=== PATIENT | female | born 1955 | race African-American/Black ===

== ENCOUNTER 2016-06-05 20:25 | Emergency (ER) | payer BC ==
[2016-06-05 20:32] VITALS: TEMP 98.3; BMI 37.1
--- NOTE | 2016-06-05 20:55 | PDOC ---
History of Present Illness - General History Source: Patient Exam Limitations: No Limitations - History of Present Illness Initial Comments: 06/05/16 21:12 The patient is a 60 year old female with past significant medical history of HTN , hypothyroidism, umbilical hernia, CAD, Gerd, cholelithiasis, s/p cholecystectomy (4 years ago) and choledocholithiasis who presents to the ED with headache, vomiting and diarrhea. Patient notes that she is experiencing abdominal discomfort that is worse when she eats. She reports increased PO. She notes that she received her flu shot few weeks ago. She denies dysuria, hesitancy, urgency or hematuria. PCP - Dr. Chandu Quiñones <Brynn Pierson - Last Filed: 06/05/16 21:12> <Hannah Matute - Last Filed: 06/06/16 04:06> - General Chief Complaint: Vomiting/Diarrhea Stated Complaint: VOMITING/DIARRHEA/ABD PAIN Time Seen by Provider: 06/05/16 20:54 Past History <Brynn Pierson - Last Filed: 06/05/16 21:12> - Past Medical History Anemia: No Asthma: No Cancer: No Cardiac Disorders: Yes (NOT SURE WHAT KIND) COPD: No CHF: No GI Disorders: Yes (GERD) HTN: Yes Hypercholesterolemia: Yes Thyroid Disease: Yes - Surgical History Abdominal Surgery: Yes Cardiac Surgery: No Cholecystectomy: Yes Lung Surgery: No Neurologic Surgery: No Orthopedic Surgery: No - Psycho/Social/Smoking Cessation Hx Suicidal Ideation: No Smoking History: Current some day smoker Have you smoked in the past 12 months: Yes Number of Cigarettes Smoked Daily: 2 Information on smoking cessation initiated: No 'Breaking Loose' booklet given: 07/28/15 Hx Alcohol Use: No Drug/Substance Use Hx: No Substance Use Type: None Hx Substance Use Treatment: No <Hannah Matute - Last Filed: 06/06/16 04:06> - Past Medical History Allergies/Adverse Reactions: Allergies Allergy/AdvReac Type Severity Reaction Status Date / Time No Known Allergies Allergy Verified 06/05/16 20:29 Home Medications: Ambulatory Orders Amlodipine Besylate 5 mg PO DAILY 07/22/15 Aspirin [ASA -] 81 mg PO DAILY 07/22/15 Losartan Potassium 25 mg PO DAILY 07/22/15 Levothyroxine [Synthroid -] 25 mcg PO DAILY 07/28/15 Atorvastatin Ca [Lipitor] 10 mg PO HS 09/22/15 Omeprazole [Prilosec] 40 mg PO DAILY 09/22/15 Ursodiol [Actigall] 300 mg PO TID 09/22/15 Review of Systems - Review of Systems Able to Perform ROS?: Yes Comments:: 06/05/16 21:13 GENERAL/CONSTITUTIONAL: No fever or chills. No weakness. HEAD, EYES, EARS, NOSE AND THROAT: No change in vision. No ear pain or discharge. No sore throat. CARDIOVASCULAR: No chest pain or shortness of breath. RESPIRATORY: No cough, wheezing, or hemoptysis. GASTROINTESTINAL: + nausea, +vomiting, +diarrhea, +abdominal pain. No constipation. GENITOURINARY: No dysuria, frequency, or change in urination. MUSCULOSKELETAL: No joint or muscle swelling or pain. No neck or back pain. SKIN: No rash NEUROLOGIC: No headache, vertigo, loss of consciousness, or change in strength/ sensation. ENDOCRINE: No increased thirst. No abnormal weight change. HEMATOLOGIC/LYMPHATIC: No anemia, easy bleeding, or history of blood clots. ALLERGIC/IMMUNOLOGIC: No hives or skin allergy. <Brynn Pierson - Last Filed: 06/05/16 21:12> *Physical Exam - Vital Signs Last Vital Signs Temp Pulse Resp BP Pulse Ox 98.3 F 130 H 14 128/47 93 L 06/05/16 20:30 06/05/16 20:30 06/05/16 20:30 06/05/16 20:30 06/05/16 20:30 - Physical Exam Comments: 06/05/16 21:13 GENERAL: Awake, alert, and fully oriented, in no acute distress HEAD: No signs of trauma EYES: PERRLA, EOMI, sclera anicteric, conjunctiva clear ENT: Auricles normal inspection, hearing grossly normal, nares patent, oropharynx clear without exudates. Moist mucosa NECK: Normal ROM, supple, no lymphadenopathy, JVD, or masses LUNGS: Breath sounds equal, clear to auscultation bilaterally. No wheezes, and no crackles HEART: Regular rate and rhythm, normal S1 and S2, no murmurs, rubs or gallops ABDOMEN: Soft, nontender, normoactive bowel sounds. No guarding, no rebound. No masses EXTREMITIES: Normal range of motion, no edema. No clubbing or cyanosis. No cords, erythema, or tenderness NEUROLOGICAL: Cranial nerves II through XII grossly intact. Normal speech, normal gait SKIN: Warm, Dry, normal turgor, no rashes or lesions noted. <Brynn Pierson - Last Filed: 06/05/16 21:12> - Vital Signs Last Vital Signs Temp Pulse Resp BP Pulse Ox 98.3 F 130 H 14 128/47 93 L 06/05/16 20:30 06/05/16 20:30 06/05/16 20:30 06/05/16 20:30 06/05/16 20:30 <Hannah Matute - Last Filed: 06/06/16 04:06> ED Treatment Course - LABORATORY CBC & Chemistry Diagram: 06/05/16 21:19 06/05/16 21:19 <Hannah Matute - Last Filed: 06/06/16 04:06> Medical Decision Making - Medical Decision Making 06/06/16 04:03 Pt comes with 2 days of dehydration/ intractable vomiting; she appears unwell, and she has heart rate of 130. Pt was hydrated in the ER and her potassium and magnesium were repleted. Pt states that she feels better after hydration and multiple meds. SHe appears well. Labs are normal and CXR is clear and her UA is normal. Pt will be discharged home. <Hannah Matute - Last Filed: 06/06/16 04:06> *DC/Admit/Observation/Transfer - Attestations Scribe Attestion: 06/05/16 21:14 Documentation prepared by MIRIAM Cash, acting as medical liaison for Hannah Matute MD. <Brynn Pierson - Last Filed: 06/05/16 21:12> - Discharge Dispostion Admit: No <Hannah Matute - Last Filed: 06/06/16 04:06> Diagnosis at time of Disposition: Viral gastroenteritis - Discharge Dispostion Disposition: HOME Condition at time of disposition: Improved - Referrals Referrals: Tim Quiñones MD [Primary Care Provider] - - Patient Instructions Printed Discharge Instructions: DI for Viral Gastroenteritis -- Adult - Post Discharge Activity Work/School Note: Back to Work
[2016-06-05] MEDS ORDERED: FAMOTIDINE 20 MG/50 ML IVPB 50 ML IVPB ONE ×2 (21:06→21:11)
[2016-06-05] MEDS ORDERED: SODIUM CHLORIDE 0.9% 500 ML INFUS.BAG IV ONE ×2 (21:06→22:29)
[2016-06-05] MEDS ORDERED: ONDANSETRON 4 MG/2 ML VIAL IVPB ONE (21:06)
[2016-06-05] MEDS ORDERED: ONDANSETRON 4 MG/2 ML VIAL ONE (21:11)
[2016-06-05 21:47] LABS: BASOPHIL 0.3 % (0-2.0); EOSINOPHIL 0.1 % (0-4.5); MCH 25.9 pg (25.7-33.7); MCHC 32.2 g/dl (32.0-36.0); MEAN CELL VOLUME 80.5 fl (80-96); NEUTROPHILS 68.3 % (42.8-82.8); RDW 14.5 % (11.6-15.6)
[2016-06-05 21:49] LABS: MEAN PLT VOLUME 11.4 fl (7.5-11.1)
[2016-06-05 22:07] LABS: PLATELET COMMENT2 NO CLUMPING NOTED; PLATELET COUNT 156 K/MM3 (134-434); PLATELET ESTIMATE DECREASED (NORMAL)
[2016-06-05 22:16] LABS: CALCIUM 9.3 mg/dL (8.5-10.1)
[2016-06-05 22:18] LABS: BILIRUBIN,TOTAL 0.5 mg/dL (0.2-1.0); CREATININE 1.7 mg/dL (0.55-1.02); TOT PROT 7.6 g/dl (6.4-8.2)
[2016-06-05] MEDS ORDERED: MAGNESIUM SULF 50% (8.12 MEQ/2 ML-1 GM VIAL) IVPB ONE (22:29)
[2016-06-05] MEDS ORDERED: POTASSIUM CHLORIDE TABS 20 MEQ TABLET.ER (FP) PO ONE ×2 (22:29→22:34)
[2016-06-05] MEDS ORDERED: MAGNESIUM SULF 50% (8.12 MEQ/2 ML-1 GM VIAL) ONE (22:34)
[2016-06-05] MEDS ORDERED: KCL 10 MEQ IVPB 100 ML IVPB ONE (22:43)
[2016-06-05] MEDS: KCL 10 MEQ IVPB 100 ML IVPB SCH ×2 (22:49→23:41)
[2016-06-05] MEDS ORDERED: KCL 10 MEQ IVPB 200 ML IVPB ONE (23:38)
[2016-06-06 00:32] VITALS: BP 132/75; PULSE 85
[2016-06-06] MEDS: KCL 10 MEQ IVPB 100 ML IVPB SCH (01:04)
[2016-06-06 01:13] LABS: URINE APPEARANCE SLCLOUDY; URINE BILIRUBIN NEGATIVE (NEGATIVE); URINE BLOOD NEGATIVE (NEGATIVE); URINE COLOR LTYELLOW; URINE GLUCOSE (UA) NEGATIVE (NEGATIVE); URINE KETONE TRACE (NEGATIVE); URINE LEUK ESTERASE NEGATIVE (NEGATIVE); URINE NITRITE NEGATIVE (NEGATIVE); URINE PROTEIN NEGATIVE (NEGATIVE); URINE UROBILINOGEN NEGATIVE E.U./dl (0.2-1.0)
== END 2016-06-06 01:54 | disposition home or self-care (01) ==
LOC: JER 20:25
PROC: 3E033GC Introduction of Other Therapeutic Substance into Peripheral Vein, Percutaneous Approach (ICD-10-PCS; principal; 2016-06-05)
PROC: 3E033GC Introduction of Other Therapeutic Substance into Peripheral Vein, Percutaneous Approach (ICD-10-PCS; 2016-06-05)
PROC: 3E033GC Introduction of Other Therapeutic Substance into Peripheral Vein, Percutaneous Approach (ICD-10-PCS; 2016-06-05)
DX: A08.4 Viral intestinal infection, unspecified (principal); B97.89 Other viral agents as the cause of diseases classified elsewhere
CPT/HCPCS: 36415; 71010-TC; 80053; 81003; 82150; 83690; 85025; 87804; 99281-25

== ENCOUNTER 2018-07-23 15:49 | Emergency (ER) | payer BC ==
[2018-07-23 15:59] VITALS: BP 145/97; PULSE 93; TEMP 98; BMI 40.2
--- NOTE | 2018-07-23 16:29 | PDOC ---
History of Present Illness - General Chief Complaint: Rectal Bleed Stated Complaint: BLOOD IN STOOL Time Seen by Provider: 07/23/18 16:27 Past History - Past Medical History Allergies/Adverse Reactions: Allergies Allergy/AdvReac Type Severity Reaction Status Date / Time No Known Allergies Allergy Verified 07/23/18 15:55 Home Medications: Ambulatory Orders Amlodipine Besylate 5 mg PO DAILY 07/22/15 Aspirin [ASA -] 81 mg PO DAILY 07/22/15 Losartan Potassium 25 mg PO DAILY 07/22/15 Levothyroxine [Synthroid -] 25 mcg PO PRN PRN 07/28/15 Atorvastatin Ca [Lipitor] 10 mg PO DAILY 09/22/15 Cyclobenzaprine HCl [Flexeril -] 10 mg PO TID 07/23/18 Anemia: No Asthma: No Cancer: No Cardiac Disorders: Yes (NOT SURE WHAT KIND) COPD: No CHF: No GI Disorders: Yes (GERD) HTN: Yes Hypercholesterolemia: Yes Thyroid Disease: Yes - Surgical History Abdominal Surgery: Yes Cardiac Surgery: No Cholecystectomy: Yes Lung Surgery: No Neurologic Surgery: No Orthopedic Surgery: No - Suicide/Smoking/Psychosocial Hx Smoking History: Current every day smoker Have you smoked in the past 12 months: Yes Number of Cigarettes Smoked Daily: 10 Information on smoking cessation initiated: No 'Breaking Loose' booklet given: 07/28/15 Hx Alcohol Use: No Drug/Substance Use Hx: No Substance Use Type: None Hx Substance Use Treatment: No *Physical Exam - Vital Signs Last Vital Signs Temp Pulse Resp BP Pulse Ox 98.0 F 93 H 18 145/97 100 07/23/18 15:56 07/23/18 15:56 07/23/18 15:56 07/23/18 15:56 07/23/18 15:56 Moderate Sedation - Procedure Monitoring Vital Signs: Procedure Monitoring Vital Signs Temperature 98.0 F 07/23/18 15:56 Pulse Rate 93 H 07/23/18 15:56 Respiratory Rate 18 07/23/18 15:56 Blood Pressure 145/97 07/23/18 15:56 O2 Sat by Pulse Oximetry (%) 100 07/23/18 15:56 ED Treatment Course - LABORATORY CBC & Chemistry Diagram: 07/23/18 17:20 07/23/18 17:20 Medical Decision Making - Medical Decision Making *Reviewed vital signs, nursing notes, and prior visit documentation (if available). Suspect likely mild diverticular bleed versus internal hemorrhoid (less likely) . Stable h/h. Vitals unremarkable for hypotension or tachycardia. 19:00 Pt signed out to resident Dr. Edwards after she was verbally appraised of the pts HPI, current ED course, and plan of management. Will reassess pt after potassium replenishment is complete. Anticipate discharge home with outpatient GI follow up. Pt requests new GI referral as she is dissatisfied with Dr. Hall. Referral placed for Dr. Guerra. *DC/Admit/Observation/Transfer - Referrals Referrals: Tim Quiñones MD [Primary Care Provider] - Abi Guerra MD [Staff Physician] - - Patient Instructions - Post Discharge Activity
--- NOTE | 2018-07-23 17:31 | PDOC ---
Attending Attestation - HPI HPI: 07/23/18 20:51 The patient is a 63 year old female, with a significant past medical history of HTN, hypothyroidism, umbilical hernia, CAD, GERD, cholelithiasis (s/p cholecystectomy), and diverticulosis who presents to the emergency department with bright red blood in her stool since earlier today. The patient notes that when she last saw her loading inspector, Dr. Giron, she had gallstones. The patient denies left lower quadrant pain. The patient denies chest pain, shortness of breath, headache or dizziness. The patient denies fever, chills, nausea, vomit, diarrhea or constipation. Allergies: NKA Past surgical history: cholecystectomy Social history: Current everyday smoker PCP: Tim Amin - Physicial Exam PE: 07/23/18 20:52 GENERAL: (+)Morbidly obese. Awake, in no acute distress HEAD: (+) normocephalic/atraumatic .No signs of trauma EYES: PERRLA, EOMI, sclera anicteric, conjunctiva clear ENT: Auricles normal inspection, hearing grossly normal, nares patent, oropharynx clear without exudates. Moist mucosa NECK: Normal ROM, supple, no lymphadenopathy, JVD, or masses LUNGS: Breath sounds equal, clear to auscultation bilaterally. No wheezes, and no crackles HEART: Regular rate and rhythm, normal S1 and S2, no murmurs, rubs or gallops ABDOMEN: (+) protuberant, nontender, normoactive bowel sounds. No guarding, no rebound. No masses RECTAL: normal tone, no melena, skin, external skin tag, but no appreciable internal hemorrhoids. EXTREMITIES: Normal range of motion, no edema. No clubbing or cyanosis. No cords, erythema, or tenderness NEUROLOGICAL: (+) alert and oriented 3. Cranial nerves II through XII grossly intact. Normal speech, normal gait SKIN: Warm, Dry, normal turgor, no rashes or lesions noted. <Azeem Tyson - Last Filed: 07/23/18 20:51> - Resident Resident Name: Raheem Rocha - ED Attending Attestation I have performed the following: I have examined & evaluated the patient, The case was reviewed & discussed with the resident, I agree w/resident's findings & plan, Exceptions are as noted - HPI HPI: 03/18/19 17:30 63-year-old female presents because of bright red blood in her stool. She does have a history of seeing a loading inspector, Dr. Giron and when she had gallstones. She had a cholecystectomy She does not have left lower quadrant pain, no fever, no chills, no nausea, no vomiting - Physicial Exam PE: 07/23/18 17:31 Morbidly obese 63-year-old female presents with complaint of blood in her stool Head normocephalic/atraumatic. Neck is supple Lungs are clear to auscultation. CVS regular rate and rhythm S1, S2 Abdomen is protuberant, no rebound, no guarding. Rectal exam normal tone, no melena, skin, external skin tag, but no appreciable internal hemorrhoids. Extremities no edema. Skin warm and dry. Neuro alert and oriented 3, ambulatory, no gross focal neural deficits Psych appropriate - Medical Decision Making 07/23/18 17:32 Differential diagnosis includes internal hemorrhoids, diverticulitis, anal fissure plan labs,hemoocult 07/23/18 22:53 stool hemoccult was negative no anemia benign abd exam pt does have a loading inspector and she will follow up with them <Kelly Bruner - Last Filed: 07/23/18 22:54> Attestations - Attestations 07/23/18 20:52 Documentation prepared by Azeem Tyson, acting as medical management specialist for Kelly Bruner MD <Azeem Tyson - Last Filed: 07/23/18 20:51>
[2018-07-23 17:33] LABS: BASO % 3.5 % (0-2.0); EOS % 2.8 % (0-4.5); HEMATOCRIT 39.8 % (32.4-45.2); HEMOGLOBIN 13.3 GM/dL (10.7-15.3); LYMPH % 42.3 % (8-40); MCH 28.1 pg (25.7-33.7); MCHC 33.4 g/dl (32.0-36.0); MEAN CELL VOLUME 84.2 fl (80-96); MEAN PLT VOLUME 11.2 fl (7.5-11.1); MONO % 7.5 % (3.8-10.2); NEUT % 43.9 % (42.8-82.8); PLATELET COUNT 113 K/MM3 (134-434); RBC 4.72 M/mm3 (3.60-5.2); RDW 14.3 % (11.6-15.6); WHITE BLOOD COUNT 7.3 K/mm3 (4.0-10.0)
[2018-07-23 17:34] LABS: URINE APPEARANCE CLEAR; URINE BILIRUBIN NEGATIVE (<2.0 mg/dL); URINE COLOR STRAW; URINE GLUCOSE (UA) NEGATIVE (NEGATIVE); URINE KETONE NEGATIVE (NEGATIVE); URINE LEUK ESTERASE NEGATIVE (NEGATIVE); URINE NITRITE NEGATIVE (NEGATIVE); URINE PROTEIN NEGATIVE (NEGATIVE); URINE UROBILINOGEN NEGATIVE mg/dL (0.2-1.0)
[2018-07-23 18:05] LABS: ALBUMIN 3.8 g/dl (3.4-5.0); ALK PHOS 73 U/L (45-117); ANION GAP 9 MMOL/L (8-16); BILIRUBIN,TOTAL 0.3 mg/dL (0.2-1); BLOOD UREA NITROGEN 13 mg/dL (7-18); CALCIUM 8.6 mg/dL (8.5-10.1); CHLORIDE 108 mmol/L (98-107); CO2 26 mmol/L (21-32); CREATININE 0.9 mg/dL (0.55-1.3); GLUCOSE,RANDOM 102 mg/dL (74-106); SGOT/AST 26 U/L (15-37); SGPT/ALT 35 U/L (13-61); SODIUM 142 mmol/L (136-145); TOT PROT 6.6 g/dl (6.4-8.2)
[2018-07-23 18:06] LABS: POTASSIUM 2.9 mmol/L (3.5-5.1)
[2018-07-23] MEDS ORDERED: POTASSIUM CHLORIDE TABS 20 MEQ TABLET.ER (FP) PO ONE ×2 (18:13→18:31)
[2018-07-23] MEDS ORDERED: KCL 10 MEQ IVPB 10 MEQ/100 ML INFUS.BAG IVPB SCH (18:15)
[2018-07-23] MEDS ORDERED: KCL 10 MEQ IVPB 10 MEQ/100 ML INFUS.BAG IVPB ONE (18:31)
--- NOTE | 2018-07-23 19:17 | PDOC ---
*Physical Exam - Vital Signs Last Vital Signs Temp Pulse Resp BP Pulse Ox 98.0 F 93 H 18 145/97 100 07/23/18 15:56 07/23/18 15:56 07/23/18 15:56 07/23/18 15:56 07/23/18 15:56 ED Treatment Course - LABORATORY CBC & Chemistry Diagram: 07/23/18 17:20 07/23/18 17:20 - ADDITIONAL ORDERS Additional order review: Laboratory Results 07/23/18 07/23/18 07/23/18 17:20 17:00 17:00 Sodium 142 Potassium 2.9 L* Chloride 108 H Carbon Dioxide 26 Anion Gap 9 BUN 13 Creatinine 0.9 Creat Clearance w eGFR 63.44 Random Glucose 102 Calcium 8.6 Total Bilirubin 0.3 AST 26 ALT 35 Alkaline Phosphatase 73 Total Protein 6.6 Albumin 3.8 Urine Color Straw Urine Appearance Clear Urine pH 6.0 Ur Specific [place] 1.012 Urine Protein Negative Urine Glucose (UA) Negative Urine Ketones Negative Urine Blood Negative Urine Nitrite Negative Urine Bilirubin Negative Urine Urobilinogen Negative Ur Leukocyte Esterase Negative Stool Occult Blood Negative 07/23/18 17:20 RBC 4.72 MCV 84.2 MCHC 33.4 RDW 14.3 MPV 11.2 H Neutrophils % 43.9 D Lymphocytes % 42.3 H D Monocytes % 7.5 Eosinophils % 2.8 D Basophils % 3.5 H D - Medications Given in the ED: ED Medications Discontinued Medications Generic Name Dose Route Start Last Admin Trade Name Freq PRN Reason Stop Dose Admin Potassium Chloride 10 meq in 100 mls @ 100 mls/hr 07/23/18 18:15 07/23/18 18: 32 Potassium Chloride 10 Meq Premix Ivpb - IVPB 07/23/18 19:14 100 mls/hr Q60M ASHISH Administration Potassium Chloride 40 meq 07/23/18 18:13 07/23/18 18:32 K-Dur - PO 07/23/18 18:14 40 meq ONCE ONE Administration Medical Decision Making - Medical Decision Making 07/23/18 19:16 Sign out received from Dr Rocha. Grace Mcarthur is a 63yo woman with a PMH of HTN, hypothyroidism, umbilical hernia, CAD, GERD, cholelithiasis s/p cholecystectomy, diverticulosis who presented reporting BRBPR. ED workup notable for: - FOBT negative - CBC w/o abnormalities. No anemia - Potassium 2.9. Currently repleting IV and PO - VSS - Plan to discharge with GI and PMD follow up after completing potassium 07/23/18 19:54 - Potassium completed - Feels ready to go home - Discussed home care, follow up, return precautions. Ms Mcarthur states understanding and agreement with this plan. Would like referral to GI and primary care. Will provide info. Discussed with Dr Bruner. Marlen Edwards PGY1 *DC/Admit/Observation/Transfer Diagnosis at time of Disposition: Hypokalemia - Discharge Dispostion Disposition: HOME Condition at time of disposition: Stable Decision to Admit order: No - Referrals Referrals: Abi Guerra MD [Staff Physician] - Tim Quiñones MD [Primary Care Provider] - [facility] [place] [facility] [Provider Group] - Patient Instructions Printed Discharge Instructions: DI for Rectal Bleeding Additional Instructions: Discharge Instructions: You were seen in the ER for rectal bleeding. There was no blood in your stool when you arrived, and the bleeding you saw may have been caused by hemorrhoids or diverticulosis (pouches off the colon) that were irritated. Home Care and Follow Up: - If you have hard stools or need to strain for a bowel movement, consider using an over the counter stool softener (Colace), mild laxative (Miralax) or fiber supplement (Metamucil). You may wish to discuss this with your doctors at follow up - You have been referred to a GI doctor for follow up. Make an appointment within the next 1-2 weeks or earlier if your symptoms recur. - You should follow up with your regular doctor within the next week to recheck your potassium. You have been referred to the [facility] if you want to switch your primary doctor. - Seek immediate medical care if you have any maroon or dark black stool, continued rectal bleeding that does not stop, lightheadedness, chest pain, shortness of breath, or any medical emergency. - Post Discharge Activity
--- NOTE | 2018-07-24 10:42 | EKG ---
Test Reason : Blood Pressure : / mmHG Vent. Rate : 081 BPM Atrial Rate : 081 BPM P-R Int : 142 ms QRS Dur : 070 ms QT Int : 384 ms P-R-T Axes : 018 013 020 degrees QTc Int : 446 ms POOR DATA QUALITY, INTERPRETATION MAY BE ADVERSELY AFFECTED NORMAL SINUS RHYTHM NONSPECIFIC ST AND T WAVE ABNORMALITY ABNORMAL ECG WHEN COMPARED WITH ECG OF 23-OCT-2006 17:55, NONSPECIFIC T WAVE ABNORMALITY, WORSE IN LATERAL LEADS Confirmed by Davey Pickering MD ([id number]) on 07/24/2018 10:42:23 AM Referred By: Confirmed By:Davey Pickering MD
== END 2018-07-23 20:45 | disposition home or self-care (01) ==
LOC: JER 15:49
PROC: 3E0337Z Introduction of Electrolytic and Water Balance Substance into Peripheral Vein, Percutaneous Approach (ICD-10-PCS; principal; 2018-07-23)
DX: E87.6 Hypokalemia (principal); I10 Essential (primary) hypertension; E03.9 Hypothyroidism, unspecified; E78.00 Pure hypercholesterolemia, unspecified; K21.9 Gastro-esophageal reflux disease without esophagitis; E66.01 Morbid (severe) obesity due to excess calories; Z68.41 Body mass index [BMI] 40.0-44.9, adult
CPT/HCPCS: 36415; 80053; 81003; 82272; 85025; 87086; 87186; 93005; 93010; 99285-25

== ENCOUNTER 2022-02-14 13:04 | Inpatient (IN) | payer BC ==
[2022-02-14 13:11] VITALS: BMI 36.6
[2022-02-14 14:52] LABS: INR 0.94 (0.83-1.09); PROTHROMBIN TIME (PATIENT) 10.8 SEC (9.7-13.0)
[2022-02-14 14:55] LABS: ACTIVATED PTT 24.6 SECONDS (25.2-36.5)
[2022-02-14 15:06] LABS: CALCIUM 9.2 mg/dL (8.5-10.1)
[2022-02-14 15:07] LABS: ALBUMIN 3.7 g/dl (3.4-5.0)
[2022-02-14 15:08] LABS: BLOOD UREA NITROGEN 14.1 mg/dL (7-18)
[2022-02-14 15:10] LABS: CREATININE 0.8 mg/dL (0.55-1.3)
[2022-02-14 15:12] LABS: TOT PROT 6.7 g/dl (6.4-8.2)
[2022-02-14 15:13] LABS: BILIRUBIN,TOTAL 0.4 mg/dL (0.2-1)
[2022-02-14 15:29] LABS: BASO % 1.2 % (0-2.0); EOS % 3.8 % (0-4.5); HEMATOCRIT 45.1 % (32.4-45.2); HEMOGLOBIN 13.9 GM/dL (10.7-15.3); MCH 25.7 pg (25.7-33.7); MCHC 30.8 g/dl (32.0-36.0); MEAN CELL VOLUME 83.3 fl (80-96); MONO % 9.1 % (3.8-10.2); NEUT % 38.9 % (42.8-82.8); RBC 5.42 M/mm3 (3.60-5.2); RDW 14.6 % (11.6-15.6); WHITE BLOOD COUNT 6.3 K/mm3 (4.0-10.0)
[2022-02-14 17:00] LABS: URINE APPEARANCE CLEAR; URINE COLOR YELLOW
[2022-02-14 17:01] LABS: URINE BILIRUBIN NEGATIVE (NEGATIVE); URINE GLUCOSE (UA) NEGATIVE (NEGATIVE); URINE KETONE NEGATIVE (NEGATIVE); URINE LEUK ESTERASE NEGATIVE (NEGATIVE); URINE NITRITE NEGATIVE (NEGATIVE); URINE PROTEIN NEGATIVE (NEGATIVE); URINE UROBILINOGEN 0.2 mg/dL (0.2-1.0)
[2022-02-14] MEDS ORDERED: ASPIRIN 81 MG CHEWABLE TABLETS PO ONE (18:16)
[2022-02-14] MEDS ORDERED: ASPIRIN 81 MG CHEWABLE TABLETS ONE (18:29)
[2022-02-14] MEDS ORDERED: ACETAMINOPHEN 1000 MG/100 ML BAG IVPB PRN (18:51)
[2022-02-15 08:40] LABS: BASO % 0.8 % (0-2.0); EOS % 5.3 % (0-4.5); HEMATOCRIT 42.5 % (32.4-45.2); HEMOGLOBIN 13.5 GM/dL (10.7-15.3); LYMPH % 48.7 % (8-40); MCH 26.2 pg (25.7-33.7); MCHC 31.7 g/dl (32.0-36.0); MEAN CELL VOLUME 82.7 fl (80-96); NEUT % 36.2 % (42.8-82.8); RBC 5.14 M/mm3 (3.60-5.2); RDW 14.3 % (11.6-15.6); WHITE BLOOD COUNT 6.6 K/mm3 (4.0-10.0)
[2022-02-15 09:07] LABS: ALBUMIN 3.5 g/dl (3.4-5.0); CALCIUM 9.2 mg/dL (8.5-10.1)
[2022-02-15 09:10] LABS: BILIRUBIN,TOTAL 0.6 mg/dL (0.2-1); CREATININE 0.8 mg/dL (0.55-1.3); TOT PROT 6.4 g/dl (6.4-8.2)
[2022-02-15] MEDS ORDERED: ATORVASTATIN CA 10 MG TABLET (FP) PO SCH (10:00)
[2022-02-15 10:28] LABS: MEAN PLT VOLUME 10.9 fl (7.5-11.1); PLATELET COUNT 98 10^3/uL (134-434)
[2022-02-15] MEDS: ASPIRIN 81 MG CHEWABLE TABLETS PO SCH (11:25)
[2022-02-15] MEDS: ENOXAPARIN NA (PORCINE) 40 MG/0.4 ML DISP.SYRIN SQ SCH (11:25)
[2022-02-15] MEDS: LOSARTAN POTASSIUM 25 MG TABLET PO SCH (11:25)
[2022-02-15] MEDS: amLODIPine BESYLATE 5 MG TABLET (FP) PO SCH (11:25)
[2022-02-15] MEDS: LEVOTHYROXINE NA 25 MCG TABLET (FP) PO SCH (11:57)
[2022-02-15] MEDS ORDERED: POTASSIUM CHLORIDE TABS 20 MEQ TABLET.ER (FP) PO ONE (14:00)
[2022-02-15 14:11] LABS: MAGNESIUM 2.1 mg/dL (1.8-2.4)
[2022-02-15 14:15] LABS: PHOSPHOROUS 4.3 mg/dL (2.5-4.9)
[2022-02-15] MEDS: NICOTINE 7 MG/24 HOURS TOPICAL PATCH TD SCH (14:38)
[2022-02-15] MEDS: ACETAMINOPHEN 1000 MG/100 ML BAG IVPB PRN (23:50)
[2022-02-16] MEDS: LEVOTHYROXINE NA 25 MCG TABLET (FP) PO SCH ×2 (06:38)
[2022-02-16] MEDS: ACETAMINOPHEN 1000 MG/100 ML BAG IVPB PRN ×2 (09:28→23:00)
[2022-02-16] MEDS: ATORVASTATIN CA 20 MG TABLET (FP) PO SCH (09:29)
[2022-02-16] MEDS: LOSARTAN POTASSIUM 25 MG TABLET PO SCH (09:29)
[2022-02-16] MEDS: amLODIPine BESYLATE 5 MG TABLET (FP) PO SCH (09:29)
[2022-02-16] MEDS: ASPIRIN 81 MG CHEWABLE TABLETS PO SCH (09:29)
[2022-02-16] MEDS: ENOXAPARIN NA (PORCINE) 40 MG/0.4 ML DISP.SYRIN SQ SCH (09:30)
[2022-02-16] MEDS: NICOTINE 7 MG/24 HOURS TOPICAL PATCH TD SCH (09:30)
[2022-02-17] MEDS: LEVOTHYROXINE NA 25 MCG TABLET (FP) PO SCH (06:14)
[2022-02-17 07:57] LABS: HEMATOCRIT 41.1 % (32.4-45.2); HEMOGLOBIN 13.2 GM/dL (10.7-15.3); MCH 26.5 pg (25.7-33.7); MCHC 32.1 g/dl (32.0-36.0); MEAN CELL VOLUME 82.7 fl (80-96); MEAN PLT VOLUME 10.9 fl (7.5-11.1); PLATELET COUNT 100 10^3/uL (134-434); RBC 4.97 M/mm3 (3.60-5.2); RDW 14.2 % (11.6-15.6); WHITE BLOOD COUNT 5.8 K/mm3 (4.0-10.0)
[2022-02-17 08:25] LABS: ALBUMIN 3.5 g/dl (3.4-5.0); BLOOD UREA NITROGEN 17.4 mg/dL (7-18); CALCIUM 9.4 mg/dL (8.5-10.1)
[2022-02-17 08:28] LABS: CREATININE 0.8 mg/dL (0.55-1.3)
[2022-02-17 08:29] LABS: BILIRUBIN,TOTAL 0.4 mg/dL (0.2-1); TOT PROT 6.2 g/dl (6.4-8.2)
[2022-02-17 10:07] LABS: ANISOCYTOSIS 0; HELMET CELLS 0; HOWELL-JOLLY BODIES 0; MACROCYTOSIS 0; OVALOCYTE 0; ROULEAU 0; SICKELED CELLS 0; TARGET CELLS 0; TEAR DROP CELLS 0; TOXIC GRANULATION 0
[2022-02-17] MEDS: ENOXAPARIN NA (PORCINE) 40 MG/0.4 ML DISP.SYRIN SQ SCH (10:24)
[2022-02-17] MEDS: ATORVASTATIN CA 20 MG TABLET (FP) PO SCH (10:24)
[2022-02-17] MEDS: NICOTINE 7 MG/24 HOURS TOPICAL PATCH TD SCH (10:24)
[2022-02-17] MEDS: LOSARTAN POTASSIUM 25 MG TABLET PO SCH (10:24)
[2022-02-17] MEDS: ASPIRIN 81 MG CHEWABLE TABLETS PO SCH (10:24)
[2022-02-17] MEDS: amLODIPine BESYLATE 5 MG TABLET (FP) PO SCH (10:24)
[2022-02-17 10:58] VITALS: RESP 16
[2022-02-17 15:24] VITALS: BP 141/76; PULSE 90; TEMP 97.8
== END 2022-02-17 18:51 | disposition home or self-care (01) | DRG 65 ==
LOC: JER 13:04 → JERBED 16:37 → UNDOADMOB 16:37 → INTOOBSV 16:37 → UNDOADMOB 16:38 → JERBED 16:38 → J4W 20:51 → OBSVTOIN 22:14 → INTOOBSV 22:14 → J4W 02-15 10:47 → JERBED 02-15 10:47 → OBSVTOIN 02-16 10:14 → J4W 02-16 21:21
PROVIDERS: ADMIT Internal Medicine; ATTEND Internal Medicine
DX: I63.9 Cerebral infarction, unspecified (principal); G81.94 Hemiplegia, unspecified affecting left nondominant side; E78.5 Hyperlipidemia, unspecified; I10 Essential (primary) hypertension; E03.9 Hypothyroidism, unspecified; K21.9 Gastro-esophageal reflux disease without esophagitis; E66.9 Obesity, unspecified; I25.10 Atherosclerotic heart disease of native coronary artery without angina pectoris; Z68.34 Body mass index [BMI] 34.0-34.9, adult; E87.6 Hypokalemia; F17.210 Nicotine dependence, cigarettes, uncomplicated
CPT/HCPCS: 36415; 70450-TC; 70496-TC; 70498-TC; 70551-TC; 80053; 80061; 81003; 82550; 83036; 83735; 84100; 84443; 84484; 85025; 85610; 85730; 86850; 86900; 86901; 93005; 93010; 93306-TC; 93880-TC; 97116-GP; 97162-GP; 99285-25; C9803-CS; G0378; U0003; U0005

== ENCOUNTER 2023-05-26 14:17 | Emergency (ER) | payer OTHER, BC ==
[2023-05-26 14:32] VITALS: BP 138/81; PULSE 99; RESP 18; TEMP 98; BMI 36.6
[2023-05-26] MEDS ORDERED: FAMOTIDINE 20 MG/50 ML IVPB 20 MG/50 ML MG IVPB ONE ×2 (15:26→15:36)
[2023-05-26] MEDS ORDERED: ACETAMINOPHEN 1000 MG/100 ML BAG IVPB ONE (15:26)
[2023-05-26] MEDS ORDERED: MAG HYDROX/AL HYDROX/SIMETH 30 ML UNIT-DOSE CUP PO ONE (15:27)
[2023-05-26] MEDS ORDERED: ACETAMINOPHEN INJECTION 100 ML IVPB ONE (15:36)
[2023-05-26] MEDS ORDERED: MAG HYDROX/AL HYDROX/SIMETH 30 ML UNIT-DOSE CUP ONE (15:36)
[2023-05-26 16:14] LABS: BASO % 1.5 % (0-2.0); EOS % 4.1 % (0-4.5); HEMATOCRIT 45.8 % (32.4-45.2); HEMOGLOBIN 14.5 GM/dL (10.7-15.3); MCH 26.2 pg (25.7-33.7); MCHC 31.6 g/dl (32.0-36.0); MEAN CELL VOLUME 82.9 fl (80-96); MEAN PLT VOLUME 10.5 fl (7.5-11.1); MONO % 11.6 % (3.8-10.2); NEUT % 34.8 % (42.8-82.8); PLATELET COUNT 127 10^3/uL (134-434); RBC 5.52 M/mm3 (3.60-5.2); RDW 14.9 % (11.6-15.6); WHITE BLOOD COUNT 7.2 K/mm3 (4.0-10.0)
[2023-05-26 16:21] LABS: POTASSIUM 3.8 mmol/L (3.5-5.1)
[2023-05-26 16:24] LABS: ALBUMIN 3.7 g/dl (3.4-5.0)
[2023-05-26 16:29] LABS: BILIRUBIN,TOTAL 0.4 mg/dL (0.2-1); PH,URINE 6.5 (5.0-8.0); TOT PROT 7.2 g/dl (6.4-8.2); URINE APPEARANCE CLEAR; URINE BILIRUBIN NEGATIVE (NEGATIVE); URINE COLOR YELLOW; URINE GLUCOSE (UA) NEGATIVE (NEGATIVE); URINE KETONE NEGATIVE (NEGATIVE); URINE LEUK ESTERASE NEGATIVE (NEGATIVE); URINE NITRITE NEGATIVE (NEGATIVE); URINE PROTEIN NEGATIVE (NEGATIVE); URINE UROBILINOGEN 0.2 mg/dL (0.2-1.0)
== END 2023-05-26 21:01 | disposition home or self-care (01) ==
LOC: JER 14:17
PROC: 3E033GC Introduction of Other Therapeutic Substance into Peripheral Vein, Percutaneous Approach (ICD-10-PCS; principal; 2023-05-26)
PROC: 3E033NZ Introduction of Analgesics, Hypnotics, Sedatives into Peripheral Vein, Percutaneous Approach (ICD-10-PCS; 2023-05-26)
DX: M54.6 Pain in thoracic spine (principal); R10.11 Right upper quadrant pain
CPT/HCPCS: 36415; 71046-TC-FY; 74177-TC; 80053; 81003; 83690; 84484; 85025; 87077; 87086; 93005; 93010; 99285-25; Q9967

== ENCOUNTER 2023-12-08 07:08 | Emergency (ER) | payer OTHER, BC ==
[2023-12-08 07:20] VITALS: BP 135/84; PULSE 86; RESP 16; TEMP 98.7; BMI 36.2
[2023-12-08] MEDS ORDERED: ACETAMINOPHEN 500 MG TABLET (FP) ONE (07:45)
[2023-12-08] MEDS: ACETAMINOPHEN 500 MG TABLET (FP) PO ONE (07:49)
== END 2023-12-08 09:16 | disposition home or self-care (01) ==
LOC: JER 07:08 → JERFT 07:08
DX: S90.31XA Contusion of right foot, initial encounter (principal); W01.0XXA Fall on same level from slipping, tripping and stumbling without subsequent striking against object, initial encounter; Y92.009 Unspecified place in unspecified non-institutional (private) residence as the place of occurrence of the external cause
CPT/HCPCS: 73630-TC-RT-FY; 99283-25